=== PATIENT | male | born 1960 | race Caucasian/White ===

== ENCOUNTER 2017-07-25 21:09 | Emergency (ER) | payer MEDICARE ==
[2017-07-25] MEDS ORDERED: Amoxicillin/Potassium Clav 875 MG TAB ONE (22:11)
[2017-07-25] MEDS ORDERED: Bacitracin Zinc 1 Packet ONE (22:11)
[2017-07-25] MEDS ORDERED: Adacel (T-DAP) 0.5 ML VIAL ONE (22:11)
== END 2017-07-25 22:45 | disposition home or self-care (01) ==
LOC: NAV ERS 21:09
DX: S81.812A Laceration without foreign body, left lower leg, initial encounter (principal); I10 Essential (primary) hypertension; F32.9 Major depressive disorder, single episode, unspecified; F17.210 Nicotine dependence, cigarettes, uncomplicated; W54.0XXA Bitten by dog, initial encounter
CPT/HCPCS: 12005; 90471; 90715

== ENCOUNTER 2018-03-17 03:43 | Emergency (ER) | payer MEDICARE, OTHER | END 2018-03-17 03:54 | disposition home or self-care (01) | LOC: NAV ERS 03:43 | DX: I10 Essential (primary) hypertension (principal); F10.10 Alcohol abuse, uncomplicated; F32.9 Major depressive disorder, single episode, unspecified; F17.210 Nicotine dependence, cigarettes, uncomplicated | CPT/HCPCS: 99283 ==